=== PATIENT | male | born 1970 | race Caucasian/White ===

== ENCOUNTER 2019-01-27 07:30 | Emergency (ER) | payer BC ==
[~2019-01-27] VITALS: Ht 185.4 cm; Wt 127.3 kg
[~2019-01-27 07:30] MED LIST: NEXIUM 40MG40 MG PO; NORCO 325 MG-7.1 TAB PO; PRINIVIL40 MG PO; TOPROL XL 25MG25 MG PO
[2019-01-27] MEDS ORDERED: LANTUS SOLOS100 U/ML ID (07:59)
[2019-01-27] MEDS ORDERED: ACTOS 15MG TAB15 MG PO (08:00)
[2019-01-27] MEDS ORDERED: CYMBALTA 60MG60 MG PO (08:00)
[2019-01-27] MEDS ORDERED: APRESOLINE 25MG25 MG PO (08:01)
[2019-01-27] MEDS ORDERED: NEURONTIN300 MG/CAP PO (08:29)
[2019-01-27 09:53] VITALS: BP 144/102; PULSE 82; TEMP 97.7
== END 2019-01-27 09:52 | disposition home or self-care (01) ==
LOC: COL.ER 07:30
DX: H92.01 Otalgia, right ear (principal); E11.9 Type 2 diabetes mellitus without complications; Z79.4 Long term (current) use of insulin
CPT/HCPCS: J1170; J1885

== ENCOUNTER 2019-03-17 09:09 | Emergency (ER) | payer BC ==
[~2019-03-17] VITALS: Ht 182.9 cm; Wt 127.3 kg
[~2019-03-17 09:09] MED LIST changes: +ACTOS 15MG TAB15 MG PO; +APRESOLINE 25MG25 MG PO; +CYMBALTA 60MG60 MG PO; +LANTUS SOLOS100 U/ML ID; +NEURONTIN300 MG/CAP PO
[2019-03-17 09:23] VITALS: TEMP 98.1
[2019-03-17 09:44] LABS: COLLECTION METHOD CLEAN CATCH
[2019-03-17 09:47] LABS: BASO # 0.1 (0.0-0.2); BASO % 0.4 % (0.0-2.0); EOS # 0.2 (0.0-0.7); EOS % 1.4 % (0-4.0); GRAN # 10.2 (1.4-6.5); GRAN % 74.6 % (42.2-75.2); HEMATOCRIT 44.9 % (42.0-52.0); HEMOGLOBIN 14.8 g/dl (13.5-18.0); LYMPH # 2.1 (1.2-3.4); LYMPH % 15.2 % (20.0-51.0); MEAN CELL VOLUME 85 fl (80.0-100.0); MEAN CORPUSCULAR HEMOGLOBIN 28 pg (27.0-31.0); MEAN CORPUSCULAR HGB CONC 33 g/dl (33.0-37.0); MEAN PLATELET VOLUME 9.3 fl (7.4-10.4); MONO # 1.1 (0.1-0.6); MONO % 7.8 % (1.7-9.3); PLATELET COUNT 360 K/mm3 (130-400); RED BLOOD COUNT 5.29 M/mm3 (4.20-5.60)
[2019-03-17 09:53] LABS: MUCOUS Present /lpf; PH 5 (5-8); SQUAMOUS EPITHELIAL 0-2 /hpf; URINE APPEARANCE Clear; URINE BACTERIA None Seen /hpf; URINE BILIRUBIN Negative (NEGATIVE); URINE BLOOD 2+ (NEGATIVE); URINE COLOR Yellow; URINE GLUCOSE 3+ (NEGATIVE); URINE KETONE Negative (NEGATIVE); URINE LEUKOCYTE ESTERASE Negative (NEGATIVE); URINE NITRATE Negative (NEGATIVE); URINE PROTEIN(semi-quant) Negative (NEGATIVE); URINE UROBILINOGEN Negative (NEGATIVE)
[2019-03-17] MEDS ORDERED: LIORESAL 1010 MG/TAB PO (09:55)
[2019-03-17 10:34] LABS: ALBUMIN 3.7 gm/dL (3.5-5.0); BILIRUBIN,TOTAL 0.3 mg/dL (0.0-1.0); C-REACTIVE PROTEIN 1.6 mg/dL (0.0-0.9); CALCIUM 9.3 mg/dL (8.4-10.2); CREATININE, serum 0.69 (0.66-1.25); POTASSIUM 4.1 mmol/L (3.4-5.0)
[2019-03-17] MEDS ORDERED: NORCO 325 MG-51 TAB PO (11:44)
[2019-03-17 12:05] VITALS: BP 152/104; PULSE 90
== END 2019-03-17 12:10 | disposition home or self-care (01) ==
LOC: COL.ER 09:09
PROVIDERS: Emergency Medicine
DX: E11.9 Type 2 diabetes mellitus without complications (principal); Z90.49 Acquired absence of other specified parts of digestive tract; Z79.4 Long term (current) use of insulin
CPT/HCPCS: J1170; J7030; Q9967

== ENCOUNTER 2019-03-24 08:57 | Inpatient (IN) | payer BC ==
[~2019-03-24] VITALS: Ht 185.4 cm; Wt 129.5 kg
[~2019-03-24 08:57] MED LIST changes: +LIORESAL 1010 MG/TAB PO; +NORCO 325 MG-51 TAB PO
[2019-03-24 09:46] LABS: BASO % 0.3 % (0.0-2.0); EOS # 0.2 (0.0-0.7); EOS % 1.2 % (0-4.0); GRAN # 8.7 (1.4-6.5); HEMATOCRIT 44.6 % (42.0-52.0); HEMOGLOBIN 14.5 g/dl (13.5-18.0); LYMPH # 2.3 (1.2-3.4); LYMPH % 18.6 % (20.0-51.0); MEAN CELL VOLUME 86 fl (80.0-100.0); MEAN CORPUSCULAR HEMOGLOBIN 28 pg (27.0-31.0); MEAN CORPUSCULAR HGB CONC 33 g/dl (33.0-37.0); MEAN PLATELET VOLUME 9.3 fl (7.4-10.4); MONO % 8.4 % (1.7-9.3); PLATELET COUNT 328 K/mm3 (130-400); RED BLOOD COUNT 5.16 M/mm3 (4.20-5.60); REDCELL DISTRIBUTION WIDTH-CV 15.5 % (11.5-14.5)
[2019-03-24 09:49] LABS: PROTHROMBIN TIME 11.7 SECONDS (9.7-12.8)
[2019-03-24 09:53] LABS: ALANINE AMINOTRANSFERASE 20 U/L (21-72); ALBUMIN 3.8 gm/dL (3.5-5.0); ALKALINE PHOSPHATASE 97 U/L (50-136); ANION GAP 8 mmol/L (7-16); AST,SGOT 18 U/L (15-37); BILIRUBIN,TOTAL 0.2 mg/dL (0.0-1.0); BLOOD UREA NITROGEN 14 mg/dL (9-20); CALCIUM 9.3 mg/dL (8.4-10.2); CARBON DIOXIDE 28 mmol/L (22-30); CHLORIDE 105 mmol/L (98-107); CREATININE, serum 0.74 (0.66-1.25); GLUCOSE 95 mg/dL (74-106); POTASSIUM 3.8 mmol/L (3.4-5.0); SODIUM 141 mmol/L (137-145)
[2019-03-24 09:54] LABS: ACETAMINOPHEN < 10 ug/mL (10-30); ALCOHOL(ethanol),MEDICAL < 10 mg/dL; SALICYLATE < 1.0 mg/dL
[2019-03-24 10:06] LABS: TROPONIN-I < 0.012 ng/mL (0.000-0.035)
[2019-03-24 11:07] LABS: TRICYCLIC ANTIDEPRESS URINE NEGATIVE
[2019-03-24 12:46] LABS: ARTERIAL BLD GAS O2 SATURATION 95.4 % (92-100); ARTERIAL BLD GAS TCO2 CT 26.5; ARTERIAL BLOOD GAS BASE EXCESS -0.3 (-2-2); ARTERIAL BLOOD GAS HCO3 25.2 meq/L (22-26); ARTERIAL BLOOD GAS PO2 74.7 mmHg (80-100); ARTERIAL BLOOD GAS pH 7.38 (7.35-7.45)
[2019-03-24 15:15] VITALS: BP 166/111; PULSE 90; TEMP 97.4
[2019-03-24] MEDS ORDERED: FLEXERIL 1010 MG/TAB PO (16:16)
[2019-03-24] MEDS ORDERED: NORVASC 5MG5 MG/TAB PO (16:16)
[2019-03-24] MEDS ORDERED: NEURONTIN600 MG/TAB PO (16:17)
[2019-03-24] MEDS ORDERED: NAPROSYN500 MG PO (16:18)
[2019-03-24 17:00] VITALS: BP 145/98; PULSE 86; TEMP 97.8
[2019-03-24] MEDS ORDERED: ACTOS 15MG TAB15 MG PO (18:48)
[2019-03-24] MEDS ORDERED: NEXIUM 40MG40 MG PO (18:49)
[2019-03-24] MEDS ORDERED: LIORESAL 1010 MG/TAB PO (18:49)
[2019-03-24] MEDS ORDERED: APRESOLINE 25MG25 MG PO (18:50)
[2019-03-24] MEDS ORDERED: FARXIGA5 PO (18:50)
[2019-03-24] MEDS ORDERED: NORCO 325 MG-7.1 TAB PO (18:51)
[2019-03-24] MEDS ORDERED: GLUCOPHAGE500 MG/TAB PO (18:52)
[2019-03-24] MEDS ORDERED: GLUCOPHAGE1000 MG PO (18:54)
[2019-03-25] VITALS (50 sets, daily range): BP systolic 134–163; BP diastolic 52–89; PULSE 85–96; TEMP 97.8–98.5; O2SAT 72–100
[2019-03-25 05:02] LABS: BASO % 0.3 % (0.0-2.0); EOS # 0.1 (0.0-0.7); EOS % 1.2 % (0-4.0); GRAN # 6.7 (1.4-6.5); GRAN % 72.9 % (42.2-75.2); HEMATOCRIT 44.9 % (42.0-52.0); HEMOGLOBIN 14.1 g/dl (13.5-18.0); LYMPH # 1.7 (1.2-3.4); LYMPH % 18.1 % (20.0-51.0); MEAN CELL VOLUME 89 fl (80.0-100.0); MEAN CORPUSCULAR HEMOGLOBIN 28 pg (27.0-31.0); MEAN CORPUSCULAR HGB CONC 31 g/dl (33.0-37.0); MEAN PLATELET VOLUME 9.6 fl (7.4-10.4); MONO # 0.7 (0.1-0.6); MONO % 7.2 % (1.7-9.3); PLATELET COUNT 292 K/mm3 (130-400); RED BLOOD COUNT 5.07 M/mm3 (4.20-5.60); REDCELL DISTRIBUTION WIDTH-CV 15.6 % (11.5-14.5)
[2019-03-25 05:30] LABS: ALBUMIN 3.4 gm/dL (3.5-5.0); BILIRUBIN,TOTAL 0.3 mg/dL (0.0-1.0); CALCIUM 8.6 mg/dL (8.4-10.2); CHOLESTEROL RISK RATIO 5.7; CREATININE, serum 0.79 (0.66-1.25); POTASSIUM 4.2 mmol/L (3.4-5.0); TOTAL PROTEIN 6.4 gm/dL (6.4-8.2)
[2019-03-25 05:38] LABS: COLLECTION METHOD CLEAN CATCH
[2019-03-25 05:44] LABS: MUCOUS Present /lpf; PH 5 (5-8); SQUAMOUS EPITHELIAL None Seen /hpf; URINE APPEARANCE Clear; URINE BACTERIA None Seen /hpf; URINE BILIRUBIN Negative (NEGATIVE); URINE BLOOD Negative (NEGATIVE); URINE COLOR Yellow; URINE GLUCOSE 3+ (NEGATIVE); URINE KETONE Negative (NEGATIVE); URINE LEUKOCYTE ESTERASE Negative (NEGATIVE); URINE NITRATE Negative (NEGATIVE); URINE PROTEIN(semi-quant) Negative (NEGATIVE); URINE RBC 0-2 /hpf; URINE UROBILINOGEN Negative (NEGATIVE)
[2019-03-26 00:29] VITALS: BP 158/87; PULSE 81; TEMP 97.9
[2019-03-26 03:33] VITALS: BP 160/76; PULSE 79; TEMP 97.7
[2019-03-26 06:03] LABS: BASO % 0.4 % (0.0-2.0); EOS # 0.2 (0.0-0.7); EOS % 1.8 % (0-4.0); GRAN # 5.8 (1.4-6.5); GRAN % 69.1 % (42.2-75.2); HEMATOCRIT 43.6 % (42.0-52.0); LYMPH # 1.7 (1.2-3.4); LYMPH % 20.3 % (20.0-51.0); MEAN CELL VOLUME 87 fl (80.0-100.0); MEAN CORPUSCULAR HEMOGLOBIN 28 pg (27.0-31.0); MEAN CORPUSCULAR HGB CONC 32 g/dl (33.0-37.0); MEAN PLATELET VOLUME 9.4 fl (7.4-10.4); MONO # 0.7 (0.1-0.6); MONO % 8.2 % (1.7-9.3); PLATELET COUNT 287 K/mm3 (130-400); RED BLOOD COUNT 5.02 M/mm3 (4.20-5.60); REDCELL DISTRIBUTION WIDTH-CV 15.3 % (11.5-14.5)
[2019-03-26 06:15] LABS: CALCIUM 8.9 mg/dL (8.4-10.2); CREATININE, serum 0.69 (0.66-1.25); POTASSIUM 3.7 mmol/L (3.4-5.0)
[2019-03-26 08:59] VITALS: BP 177/102; PULSE 99; TEMP 97.7
[2019-03-26 11:13] VITALS: BP 130/110; PULSE 90; TEMP 98.2
[2019-03-26] MEDS ORDERED: APRESOLINE 25MG25 MG PO (14:11)
[2019-03-26] MEDS ORDERED: NORVASC 5MG5 MG/TAB PO (14:12)
[2019-03-26] MEDS ORDERED: ASPIRIN 81M81 MG/TA2 PO (14:12)
== END 2019-03-26 14:54 | disposition home or self-care (01) | DRG 72 ==
LOC: COL.ER 08:57 → ICU 12:32 → MEDICAL 03-25 12:27
PROVIDERS: Emergency Medicine; Hospitalist; ADMIT Internal Medicine
DX: G93.40 Encephalopathy, unspecified (principal); I10 Essential (primary) hypertension; G47.33 Obstructive sleep apnea (adult) (pediatric); I16.0 Hypertensive urgency; E11.9 Type 2 diabetes mellitus without complications; G89.29 Other chronic pain; F17.210 Nicotine dependence, cigarettes, uncomplicated; E66.01 Morbid (severe) obesity due to excess calories; M54.5 Low back pain; D72.829 Elevated white blood cell count, unspecified; Z88.9 Allergy status to unspecified drugs, medicaments and biological substances; Z96.9 Presence of functional implant, unspecified; Z86.73 Personal history of transient ischemic attack (TIA), and cerebral infarction without residual deficits; Z98.1 Arthrodesis status; Z79.4 Long term (current) use of insulin; Z68.37 Body mass index [BMI] 37.0-37.9, adult
CPT/HCPCS: 99232-AI; C9113; J1650; J1815; J2310; J7030; Q9967